=== PATIENT | female | born 1975 | race Caucasian/White ===

== ENCOUNTER 2021-03-05 16:21 | Emergency (ER) | payer BC ==
[~2021-03-05] VITALS: Ht 165.1 cm; Wt 74.5 kg
--- NOTE | 2021-03-05 16:46 | EKG ---
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
--- NOTE | 2021-03-05 17:03 | RAD ---
PA chest. HISTORY: Chest pain, short of breath, Covid positive on February 23 PA view was taken of the chest. There is no pneumothorax or pleural effusion. Lungs are free of infil trates. Heart is normal in size. IMPRESSION: 1. No acute chest disease. Electronically signed by: Mendoza Witt MD (03/05/2021 5:01 PM) [facility]
--- NOTE | 2021-03-05 18:01 | PHYS DOC ---
Adult General Chief Complaint Chief Complaint: CHEST PAIN HPI HPI 45-year-old female presents to ED via POV with complaints of central chest pain beginning at 0400 today. She fell back asleep until 0600 and pain was still present. She describes pain as constant central pressure at 6/10. Non-radiating. She recently self quarantined for COVID signs and symptoms, after she was exposed, but has not tested recently. She endorses generalized body aches, fever, or headache. She states that pain is better with palpation and leaning over. She vomited x1 earlier today, but denies nausea currently. She states that she has tried Advil, Tylenol, and Tums without relief. She states that she feels like she cannot get a deep breath from the discomfort and denies any new cough. (PAT MCKEON APRN) Review of Systems Review of Systems Constitutional: Denies fever or chills [] Eyes: Denies change in visual acuity, redness, or eye pain [] HENT: Denies nasal congestion or sore throat [] Respiratory: See HPI. Cardiovascular: See HPI. [] GI: See HPI. [] : Denies dysuria or hematuria [] Musculoskeletal: Denies back pain or joint pain [] Integument: Denies rash or skin lesions [] Neurologic: Denies headache, focal weakness or sensory changes [] All other systems were reviewed and found to be within normal limits, except as documented in this note. (PAT MCKEON APRN) Physical Exam Physical Exam Constitutional: Well developed, well nourished, no acute distress, non-toxic appearance. [] HENT: Normocephalic, atraumatic, bilateral external ears normal, oropharynx moist, no oral exudates, nose normal. [] Eyes: PERRL, EOMI, conjunctiva normal, no discharge. [] Neck: Normal range of motion, no tenderness, supple, no stridor. [] Cardiovascular: Heart rate regular rhythm, no murmur [] Lungs & Thorax: Bilateral breath sounds clear to auscultation [] Abdomen: Bowel sounds normal, soft, no tenderness, no masses, no pulsatile masses. [] Skin: Warm, dry, no erythema, no rash. [] Back: No tenderness and normal range of motion.[] Extremities: No tenderness, no cyanosis, no clubbing, ROM intact, no edema. [] Neurologic: Alert and oriented X 3, normal motor function, normal sensory function, no focal deficits noted. [] Psychologic: Affect normal, judgement normal, mood normal. [] (PAT MCKEON APRN) Current Patient Data Lab Results Laboratory Tests Test 03/05/21 16:43 03/05/21 18:14 03/05/21 21:14 White Blood Count 7.2 x10^3/uL Red Blood Count 5.35 x10^6/uL Hemoglobin 16.8 g/dL Hematocrit 48.4 % Mean Corpuscular Volume 91 fL Mean Corpuscular Hemoglobin 32 pg Mean Corpuscular Hemoglobin Concent 35 g/dL Red Cell Distribution Width 13.0 % Platelet Count 274 x10^3/uL Neutrophils (%) (Auto) 72 % Lymphocytes (%) (Auto) 20 % Monocytes (%) (Auto) 7 % Eosinophils (%) (Auto) 1 % Basophils (%) (Auto) 1 % Neutrophils # (Auto) 5.2 x10^3uL Lymphocytes # (Auto) 1.4 x10^3/uL Monocytes # (Auto) 0.5 x10^3/uL Eosinophils # (Auto) 0.1 x10^3/uL Basophils # (Auto) 0.0 x10^3/uL Sodium Level 136 mmol/L Potassium Level 3.6 mmol/L Chloride Level 97 mmol/L Carbon Dioxide Level 29 mmol/L Anion Gap 10 Blood Urea Nitrogen 12 mg/dL Creatinine 0.7 mg/dL Estimated GFR (Cockcroft-Gault) 90.5 BUN/Creatinine Ratio 17 Glucose Level 97 mg/dL Calcium Level 9.8 mg/dL Total Bilirubin 0.7 mg/dL Aspartate Amino Transf (AST/SGOT) 70 U/L Alanine Aminotransferase (ALT/SGPT) 78 U/L Alkaline Phosphatase 59 U/L Troponin I High Sensitivity 1845 ng/L 2764 ng/L Total Protein 7.7 g/dL Albumin 4.2 g/dL Albumin/Globulin Ratio 1.2 SARS-CoV-2 Antigen (Rapid) Negative Current Medications Medications (Trade) Dose Ordered Sig/Carloz Route PRN Reason Start Time Stop Time Status Last Admin Dose Admin Nitroglycerin (Nitrostat) 0.4 mg PRN Q5MIN PRN SL CHEST PAIN 03/05/21 18:30 03/05/21 18:50 Aspirin (José Miguel Aspirin) 325 mg 1X ONCE PO 03/05/21 18:30 03/05/21 18:34 DC 03/05/21 18:30 Morphine Sulfate (Morphine 4mg Syringe) 4 mg STK-MED ONCE .ROUTE 03/05/21 19:17 03/05/21 19:17 DC Ondansetron HCl (Zofran) 4 mg STK-MED ONCE .ROUTE 03/05/21 19:20 03/05/21 19:20 DC Heparin Sodium/ Dextrose 250 ml @ 9 mls/hr CONT PRN IV SEE I/O RECORD 03/05/21 19:45 03/05/21 20:44 Heparin Sodium (Porcine) (Heparin Sodium) 4,000 unit 1X ONCE IV 03/05/21 19:45 03/05/21 20:02 DC 03/05/21 20:42 Heparin Sodium (Porcine) (Heparin Sodium) 1,850 unit PRN Q6HRS PRN IV FOR PTT LESS THAN 24 SECONDS 03/05/21 19:45 Clonidine HCl (Catapres) 0.2 mg 1X ONCE PO 03/05/21 20:15 03/05/21 20:26 DC 03/05/21 20:38 Clonidine HCl (Catapres Tts-2) 1 patch 1X ONCE TD 03/05/21 20:15 03/05/21 20:27 DC 03/05/21 20:39 Morphine Sulfate (Morphine 4mg Syringe) 4 mg 1X ONCE IV 03/05/21 22:00 03/05/21 22:05 DC 03/05/21 22:15 Ondansetron HCl (Zofran) 4 mg 1X ONCE IVP 03/05/21 22:00 03/05/21 22:05 DC 03/05/21 22:15 (PAT MCKEON APRN) EKG EKG Normal sinus rhythm at a rate of 55 bpm, QTC is 421, no STEMI. Read by Dr. Hodgson at 1635. Repeat EKG at 1926 showing sinus rhythm, heart rate 49, QTc is 411, no STEMI. Read by Dr. Stanford. Third EKG at sinus rhythm with heart rate at 63, no STEMI and read by Dr. Stanford. (PAT MCKEON APRN) Radiology/Procedures Radiology/Procedures No acute findings on chest x-ray.[] (PAT MCKEON APRN) Heart Score C/O Chest Pain: Yes (Chest pain beginning at 0400 today.) HEART Score for Chest Pain: HEART Score for Chest Pain Response (Comments) Value History Slighlty/Non-Suspicious 0 ECG Normal 0 Age >45 - < 65 1 Risk Factors 1 or 2 Risk Factors 1 Troponin >3 x Normal Limit 2 Total 4 Risk Factors: Patient states that she goes through 1 pack of cigarettes every 3 to 4 days. She has been diagnosed with hypertension, however has not been on medications in over a year due to control with diet and exercise. Risk Scores: Risk Factors: DM, Current or recent (<one month) smoker, HTN, HLP, family history of CAD, obesity. (PAT MCKEON APRN) Course & Med Decision Making Course & Med Decision Making Patient is a 45-year-old female who presents to ED today due to constant, centralized chest pain beginning at 0400 today. She states that she was able to fall back asleep but the pain woke her up at 0600. She used to take 2 separate medications for hypertension, but has been off of those for over a year due to control with diet and exercise. She has tried Tylenol, ibuprofen, and Tums today without relief. She denies any immediate family history of CAD. Blood work ordered, EKG, chest x-ray, and COVID test. 1 nitro given without relief. 4 mg of morphine IVP ordered which brought pain to 2/10. Patient's troponin came back as 1845. Cardiology was paged and spoke with Dr. Mcgowan regarding patient's case. Repeat EKG performed at [address] Mcgowan. We will heparinize patient here and will continue repeat EKGs and troponins, along with blood pressure control. Discussed case with Dr. Mas at [facility] and he agreed to accept this patient for continued care. Clonidine 0.2mg PO along with Clonidine 0.2mg patch ordered for blood pressures ranging 220's/130's. Reassessment completed for patient and she is much more comfortable now with family at bedside. She states that her pain has improved (3/10) with morphine 8 mg and Zofran 8 mg IV push. She is agreeable to being transferred to [place] for admission and probable Sr. Director tomorrow with Dr. Mcgowan. Blood pressure now 104/62 and will remove Clonidine patch. Patient awaiting transfer. Case discussed with next provider at 0015 and patient still awaiting transport via EMS. (PAT MCKEON APRN) Dragon Disclaimer Dragon Disclaimer This electronic medical record was generated, in whole or in part, using a voice recognition dictation system. (PAT MCKEON APRN) Departure Departure: Referrals: OLAMIDE FLETCHER (PCP) Attending Signature Attending Signature I have participated in the care of this patient and I have reviewed and agree with all pertinent clinical information above including history, exam, and recommendations. (EFRAÍN STANFORD MD) PAT MCKEON APRN Mar 05, 2021 18:01 EFRAÍN STANFORD MD Mar 10, 2021 20:41
[2021-03-05] MEDS ORDERED: NITROGLYCERIN SUBLINGUAL 0.4 MG BOTTLE OF 25. SL PRN (18:30)
[2021-03-05] MEDS ORDERED: ASPIRIN 325 MG TABLET PO ONE (18:30)
[2021-03-05 18:50] LABS: BASO % 1 % (0-3); EOS # 0.1 x10^3/uL (0.0-0.7); EOS % 1 % (0-3); HEMATOCRIT 48.4 % (36.0-47.0); HEMOGLOBIN 16.8 g/dL (12.0-15.5); LYMPH # 1.4 x10^3/uL (1.0-4.8); LYMPH % 20 % (24-48); MEAN CORPUSCULAR HEMOGLOBIN 32 pg (25-35); MEAN CORPUSCULAR HGB CONC 35 g/dL (31-37); MEAN CORPUSCULAR VOLUME 91 fL (79-100); MONO # 0.5 x10^3/uL (0.0-1.1); MONO % 7 % (0-9); NEUT # 5.2 x10^3uL (1.8-7.7); NEUT % 72 % (31-73); PLATELET COUNT 274 x10^3/uL (140-400); RED BLOOD COUNT 5.35 x10^6/uL (3.50-5.40); WHITE BLOOD COUNT 7.2 x10^3/uL (4.0-11.0)
[2021-03-05 18:57] LABS: CALCIUM 9.8 mg/dL (8.5-10.1); CREATININE 0.7 mg/dL (0.6-1.0); GFR 90.5; POTASSIUM 3.6 mmol/L (3.5-5.1)
[2021-03-05 19:13] LABS: ALBUMIN 4.2 g/dL (3.4-5.0); ALBUMIN/GLOBULIN RATIO 1.2 (1.0-1.7); TOTAL BILIRUBIN 0.7 mg/dL (0.2-1.0); TOTAL PROTEIN 7.7 g/dL (6.4-8.2)
[2021-03-05] MEDS ORDERED: MORPHINE SULFATE 4 MG/ML DISP.SYRIN. ONE (19:17)
[2021-03-05] MEDS ORDERED: ONDANSETRON PF 4 MG/2 ML VIAL. ONE (19:20)
[2021-03-05] MEDS ORDERED: HEPARIN for IV BOLUS 10,000 UNIT/10 ML VIAL. IV ONE (19:45)
[2021-03-05] MEDS ORDERED: HEPARIN 25,000UTS/250ML PREMIX 250 ML IV PRN (19:45)
[2021-03-05] MEDS ORDERED: HEPARIN for IV BOLUS 10,000 UNIT/10 ML VIAL. IV PRN (19:45)
[2021-03-05] MEDS ORDERED: cloNIDine HCL 0.1 MG TABLET PO ONE (20:15)
[2021-03-05] MEDS ORDERED: cloNIDine TTS-2 1 PATCH PATCH TD ONE (20:15)
[2021-03-05] MEDS ORDERED: MORPHINE SULFATE 4 MG/ML DISP.SYRIN. IV ONE (22:00)
[2021-03-05] MEDS ORDERED: ONDANSETRON PF 4 MG/2 ML VIAL. IVP ONE (22:00)
[2021-03-06 00:45] VITALS: BP 145/85
--- NOTE | 2021-03-06 01:03 | EKG ---
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
--- NOTE | 2021-03-06 01:40 | EKG ---
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
== END 2021-03-06 00:46 | disposition short-term general hospital (02) ==
LOC: ER 16:21
DX: R07.89 Other chest pain (principal); R51.9 Headache, unspecified; M79.10 Myalgia, unspecified site; Z20.822 Contact with and (suspected) exposure to COVID-19
CPT/HCPCS: 36415; 71045; 80053; 84484; 85025; 85610; 85730; 87426; 93005; 96365; 96375; 96376; 99285; J1644; J2270; J2405